=== PATIENT | female | born 1970 | race Caucasian/White ===

== ENCOUNTER 2020-04-23 07:59 | Emergency (ER) | payer MEDICAID ==
[~2020-04-23] VITALS: Ht 165.1 cm; Wt 100.0 kg
[2020-04-23] MEDS ORDERED: LISI-661 PO (08:04)
[2020-04-23] MEDS ORDERED: METH-386 PO (08:04)
[2020-04-23] MEDS ORDERED: ACETAMINOPHEN 325 MG TABLET PO ONE (08:45)
[2020-04-23 10:20] VITALS: BP 124/76
== END 2020-04-23 11:15 | disposition home or self-care (01) ==
LOC: EMS 08:04
DX: R19.7 Diarrhea, unspecified (principal); R10.33 Periumbilical pain; R11.0 Nausea; I10 Essential (primary) hypertension; Z20.828 Contact with and (suspected) exposure to other viral communicable diseases; Z79.899 Other long term (current) drug therapy
CPT/HCPCS: 87426; 99283; U0003